=== PATIENT | male | born 1980 | race Caucasian/White ===

== ENCOUNTER 2016-10-22 14:51 | Observation (INO) | payer MEDICAID ==
[~2016-10-22] VITALS: Ht 177.8 cm; Wt 90.0 kg
[2016-10-22] MEDS ORDERED: ZIPRASIDONE 20 MG INJ IM ONE ×2 (15:20→15:30)
[2016-10-22] MEDS ORDERED: LAMO100T5 PO (15:31)
[2016-10-22] MEDS ORDERED: BUSP10TA PO (15:31)
[2016-10-22] MEDS ORDERED: QUET50TA5 PO (15:31)
[2016-10-22 15:34] LABS: BLOOD UREA NITROGEN 12 mg/dL (7-18)
[2016-10-22 15:35] LABS: ACETAMINOPHEN < 2 mcg/mL (10-30)
[2016-10-22 18:35] LABS: DAU SCREEN DISCLAIMER
[2016-10-23] MEDS ORDERED: ZIPRASIDONE 20 MG INJ IM ONE ×6 (00:54→10:30)
[2016-10-23] MEDS ORDERED: QUETIAPINE 100MG TABLET PO ONE (10:30)
[2016-10-23] MEDS ORDERED: LORazepam 1MG TABLET ONE (23:26)
[2016-10-23] MEDS ORDERED: LORazepam 1MG TABLET PO ONE (23:30)
[2016-10-24] MEDS ORDERED: QUETIAPINE 100MG TABLET PO ONE (01:00)
[2016-10-24] MEDS ORDERED: OLANZAPINE 10 MG TABLET PO ONE (01:00)
[2016-10-24] MEDS ORDERED: POTASSIUM CHLORIDE 20 MEQ TAB.ER.PRT PO ONE (06:00)
[2016-10-24] MEDS ORDERED: BISACODYL 10 MG SUPP PR PRN (06:00)
[2016-10-24] MEDS ORDERED: ZIPRASIDONE 20 MG INJ IM PRN (06:00)
[2016-10-24] MEDS ORDERED: ACETAMINOPHEN 325 MG TABLET PO PRN (06:00)
[2016-10-24] MEDS ORDERED: DOCUSATE 100 MG CAPSULE PO PRN (06:00)
[2016-10-24] MEDS ORDERED: POLYETHYLENE GLYCOL 17 GM PACKET PO PRN (06:00)
[2016-10-24 08:43] VITALS: BP 147/100
[2016-10-24] MEDS ORDERED: LORazepam 1MG TABLET PO ONE (10:30)
[2016-10-24] MEDS ORDERED: ZIPRASIDONE 40MG CAPSULE PO ONE (10:30)
== END 2016-10-24 14:45 ==
LOC: ED 17:44 → EDIP 10-24 03:23 → 3E 10-24 08:04
PROVIDERS: ADMIT Internal Medicine; ATTEND Internal Medicine
DX: F23 Brief psychotic disorder (principal); F20.9 Schizophrenia, unspecified; F31.9 Bipolar disorder, unspecified; E87.6 Hypokalemia; F22 Delusional disorders; R44.1 Visual hallucinations; R40.0 Somnolence; Z78.1 Physical restraint status
CPT/HCPCS: 36415; 80048; 80307; 80329; 82040; 85025; 96372; 99285; G0378; J3486; G0480

== ENCOUNTER 2018-10-14 16:04 | Outpatient (CLI) | payer BC ==
[~2018-10-14 16:04] MED LIST: BUSP10TA PO; LAMO100T5 PO; QUET50TA5 PO
== END 2018-10-14 23:59 | disposition home or self-care (01) ==
LOC: RAD 16:04
PROVIDERS: ATTEND Family Medicine
DX: Z02.9 Encounter for administrative examinations, unspecified (principal)

== ENCOUNTER → 2018-10-17 | Outpatient (CLI) | payer BC | END | disposition home or self-care (01) | LOC: RAD 11:07 | PROVIDERS: ATTEND Family Medicine | DX: M41.25 Other idiopathic scoliosis, thoracolumbar region (principal); M43.8X5 Other specified deforming dorsopathies, thoracolumbar region | CPT/HCPCS: 72082 ==